=== PATIENT | female | born 1995 | race Hispanic/Latino ===

== ENCOUNTER 2016-11-11 23:30 | Inpatient (IN) | payer OTHER ==
[~2016-11-11] VITALS: Ht 165.1 cm; Wt 94.8 kg
[2016-11-12] MEDS ORDERED: Lactated Ringer's 1,000 ML IV PRN (01:02)
[2016-11-12] MEDS ORDERED: Methylergonovine 0.2 mg/mL Inj IM PRN ×2 (01:05→06:40)
[2016-11-12] MEDS ORDERED: Sodium Chloride LOK Flush 10 mL Syringe IVFLUSH PRN (01:05)
[2016-11-12] MEDS ORDERED: Carboprost 250 mCg/mL Inj IM PRN ×2 (01:05→06:40)
[2016-11-12] MEDS ORDERED: Oxytocin 10 Unit/mL Inj IM PRN ×2 (01:05→06:40)
[2016-11-12] MEDS ORDERED: Oxytocin 30 Units/500 mL LR 30 UNITS in IV Premix 1 EACH IV PRN ×2 (01:05→06:40)
[2016-11-12] MEDS ORDERED: Ondansetron 2 mg/mL 2 mL Inj IVPUSH PRN ×2 (01:05→01:10)
[2016-11-12] MEDS ORDERED: Hemorrhage Kit, Post Partum XX ONE ×2 (01:05→06:40)
[2016-11-12] MEDS ORDERED: Lactated Ringer's 1,000 ML IV SCH (01:10)
[2016-11-12] MEDS ORDERED: Atropine 1 mg/10 mL (Code) Syringe IVPUSH PRN (01:10)
[2016-11-12] MEDS ORDERED: Lactated Ringer's 500 ML IV ONE (01:10)
[2016-11-12] MEDS ORDERED: fentaNYL 2 mCg/mL-Bupiv 0.125% 100 ML EPIDURAL SCH (01:10)
[2016-11-12] MEDS ORDERED: EPHEDrine Sulfate 50 mg/mL Inj IVPUSH PRN (01:10)
[2016-11-12 01:32] LABS: Mean Corpuscular Hemoglobin 25.6 pg (27.0-35.0); Mean Corpuscular Volume 83.4 fL (81-100)
--- NOTE | 2016-11-12 02:17 | PCM.HPANE ---
Patient Data Surgeon Admitting Provider:Chance Hernandez MD Attending Provider:Chance Hernandez MD Primary Care Physician:Chance Hernandez MD Other Provider:Eliazar Anna Anesthesia Reason for Visit TERM Ht/WT & BMI Body Mass Index Past Anesthesia History Anesthesia History: Denies:: Abnormal Airway, Anesthesia Reactions, Difficult Intubation, Fam Anesthesia Reaction, Fam Malignant Hypertherm, Malignant Hyperthermia Diabetes History Hx Diabetes?: No MRSA MRSA: No Medications Hypertension Medication: No Home Meds Incl Beta Yoni: No History History of ENT Problems?: No HEENT History: Denies:: Abnormal Airway Cataracts Difficult Intubation Dysphagia Glaucoma Hearing Problem Sinus Problem TMJ Denture Type: None Teeth Condition: Within Normal Limits Hx of Heart Problems?: No Cardiovascular History: Denies:: AICD Abdominal Aortic Aneurism Atrial Fibrillation Cardiac Surgery Chest Pain Congestive Heart Failure Coronary Artery Disease Edema Heart Murmur Hypertension Irregular Heartbeat Pacemaker Peripheral Vascular Rheumatic Fever Thrombophlebitis Valvular Heart Disease Hx of Respiratory Problem?: No Respiratory History: Denies:: Asthma COPD Chest Surgery Cough Dyspnea Emphysema Hemoptysis Oxygen Administration Pneumonia Pulmonary Embolism Tuberculosis Use of C-PAP Machine Use of Inhalers / NEBS Hx Neurologic Problems?: No Hx of GI Problems?: No Hx of Problems?: No HX of Peritoneal Dialysis: No Female Hx: Positive for:: Currently (uncomplicated) Hx Musculoskeletal Problems?: No Hx Surgeries?: No Stop/Bang TONY Risk Assessment: Low Risk, <3 Yes Risk Assessment Category Category 1A: Patient has history of documented sleep apnea, and HAS NOT received any narcotic, sedative or anesthesia administration during this stay. Category 1B: Patient has history of documented sleep apnea, and HAS received any narcotic , sedative or anesthesia administration during this stay Category 2: Patient has SUSPECTED Obstructive Sleep Apnea, and HAS received any narcotic , sedative or anesthesia administration during this stay. Category 3: Patient has SUSPECTED Obstructive Sleep Apnea and HAS NOT received narcotic, sedative or anesthesia administration during this stay. Category 4: Outpatient in Procedural Areas with known sleep apnea or who screen positive for High Risk via the STOP/BANG questionnaire. Exam Exam General Appearance: Alert, Oriented X3, Cooperative, No Acute Distress HEENT/AIRWAY: MP 2 Lungs: Clear to Auscultation, Normal Air Movement Heart: Exam Unremarkable, Regular Rate/Rhythm, No Murmurs/Rubs/Gallops Plan Impression Patient chart reviewed, patient interviewed and anesthestic plan with risks, benefits, and alternatives discussed, and informed consent obtained. NPO per Anesth. Guidelines: Yes ASA Physical Status: ASA2 Mod Systemic Disease Anesthetic Plan: Epidural Bene/Risks/Altern/Consents: Yes HP Complete Prior to Induction: Yes David Swanson MD Nov 12, 2016 01:12
--- NOTE | 2016-11-12 04:56 | HP ---
[address] [address] HISTORY AND PHYSICAL PATIENT: JUAN CARLOS POTTS : 1995 MR#: [id number] ADMIT: 11/12/2016 JOB ID: [id number] CHIEF COMPLAINT: Increased contractions at term. HISTORY OF PRESENT ILLNESS: A 20-year-old, 3, para 1, who presented late for care to [facility] with Dr. Hernandez and has an estimated due date of October 30, 2016, presented with increased contractions and cervical dilation earlier this morning. I was contacted by nursing about 4 a.m. to come and rupture her as she was having increased urge to push with a very bulgy bag. was complicated by late presentation to care, a history of marijuana use, excess weight, and anemia. Dr. Hernandez had been planned induction for November 13 due to presumptive post-dates. MEDICATIONS: 1. vitamins 1 tablet daily. 2. Ferrous sulfate 325 mg twice daily. ALLERGIES: None known. PAST GYNECOLOGIC HISTORY: 3, para 1. In 2013, she had a miscarriage. In 2014, she delivered a 6 pound 13 ounce female at 39-5/7 weeks by vaginal delivery, reports no complications. LABORATORIES: Glucose tolerance test was 127 with an A1c of 5.3. Blood type O positive. Rubella immune. Hepatitis B surface antigen, HIV test negative. RPR nonreactive. Quad screen was not performed as she was late to care. Her hematocrit was 28.4 at 37 weeks. A GBS swab done October 15, 2016, was negative. Gonorrhea and Chlamydia DNA testing was negative October 15, as was hepatitis C. She is varicella immune as well. PHYSICAL EXAMINATION: Over-nourished young woman becoming progressively more uncomfortable. Please see nursing notes for admitting vitals. Cervical exam shows her to be anterior lip, 100% effaced, -2 station. Very bulgy bag which is ruptured with clear, mucousy fluid in copious amounts. heart tracing shows a baseline in the 130s to 140s. There is one deceleration with recovery seen on the strip I am reviewing. Tocometer shows regular contractions every 2-3 minutes. LABS: Hemoglobin 9.1, Hematocrit 29.7. Urine toxicology screen is positive for marijuana. ASSESSMENT: 1. Gravid at term with uncertain dates, possibly post term. 2. Excess weight. 3. History of marijuana use. 4. Anemia. 5. GBS negative. 6. Late to care. PLAN: The patient is relatively comfortable with an epidural. Anticipate pushing shortly thereafter. The patient and the will be followed by [facility] physicians subsequently. LUIS
[2016-11-12] MEDS: Lactated Ringer's 1,000 ML IV SCH ×3 (06:37→22:37)
[2016-11-12] MEDS ORDERED: Witch Hazel-Glycerin Pads TOPICAL PRN (06:40)
[2016-11-12] MEDS ORDERED: HYDROcodone-APAP 5-325 mg Tablet PO PRN (06:40)
[2016-11-12] MEDS ORDERED: Benzocaine (Dermoplast) 20% 60 Gm Spray TOPICAL PRN (06:40)
[2016-11-12] MEDS ORDERED: LANOlin HPA 7 Gm Ointment TOPICAL PRN (06:40)
--- NOTE | 2016-11-12 07:11 | OP ---
[address] [address] OPERATIVE REPORT PATIENT: JUAN CARLOS POTTS : 1995 MR#: [id number] ADMIT: 11/12/2016 JOB ID: [id number] DELIVERY NOTE DELIVERY POSITION: ROT. APGARS: 5 and 7. DELIVERY WEIGHT: 3838 grams. UMBILICAL CORD: Nuchal cord x1, three vessel cord, otherwise normal appearance. PLACENTA: Central cord insertion, normal appearance, no evidence of retained fragments. ESTIMATED BLOOD LOSS: 250 cc. LACERATIONS: Second degree perineal. COMPLICATIONS: Nuchal cord x1, body was slow to deliver. ANESTHESIA: Epidural and lidocaine for repair. DESCRIPTION OF PROCEDURE: The patient pushed, bringing the head down. Head delivered in right occiput transverse position then rotated as below. Initially shoulders did not deliver easily but as I was contemplating calling a shoulder dystocia the infant rolled towards the maternal left side (infant was rolling face up with left shoulder going under the pubic bone). Nuchal cord was identified and reduced. Body then delivered there afterwards. Infant did not have particularly strong cry and so cord was clamped and infant handed off to nursing for additional stimulation. Cord gas was collected and sent as was cord blood. Perineum was inspected and showed a shallow second degree perineal tear repaired with 2-0 Vicryl after instilling lidocaine. Placenta delivered with spontaneous traction on the cord and after one or two gushes, bleeding slowed rapidly. IV oxytocin is instituted. The patient is in stable condition . Pediatrics was present soon after delivery to evaluate the . I will notify [facility] as this is their regular patient. Sponge and needle counts were correct after delivery. Her rectal exam after repair showed no through and through tears and an intact sphincter tone. MTDD
[2016-11-12] MEDS: Ascorbic Acid 500 mg Tablet PO SCH ×2 (08:00→20:23)
[2016-11-12] MEDS ORDERED: Sodium Chloride LOK Flush 10 mL Syringe IVFLUSH SCH (08:30)
--- NOTE | 2016-11-12 10:28 | NUR ---
Social Work Note D/A/P: Referral received. ON SITE CONSTRUCTION SUPERINTENDENT received referral due to a history of substance use and current Suboxone maintenance. ON SITE CONSTRUCTION SUPERINTENDENT spoke with sales representative trainee Karrie and was informed that Pt would likely not be ready for discharge today. LINDEN and sales representative trainee agreed that ON SITE CONSTRUCTION SUPERINTENDENT would see this Pt today if possible considering the rest of ON SITE CONSTRUCTION SUPERINTENDENT's workflow. If not possible, Pt will be seen first thing in the morning on 11/13/2016. LINDEN Mccormick AAC Addendum: 11/12/16 at 1031 by NEGRA HERNANDEZ Correction. Pt is positive for THC and not on suboxone maintenance. LINDEN Mccormick AAC Addendum: 11/13/16 at 0951 by NEGRA FUNK Correction: Pt is not on suboxone maintenance. Pt admitted recent THC use on 11/11/216 However, no UDS on Pt and NB UDS negative. ON SITE CONSTRUCTION SUPERINTENDENT to see within the hour. Hannah Funk MSW, AAC
--- NOTE | 2016-11-12 15:03 | PCM.ANEP1 ---
Post Anesthesia PACU Phase 1 Assessment Anesthetic Administered: Epidural Level of Alertness: Awake, talking CEDEÑO's with Equal Strength: Yes Pain: No Nausea or Vomiting: No CV Function & Hydration Stable: Yes Airway Device: Oxygen Delivery: Room Air Lungs: Normal Air Movement PACU Phase 2 Assessment Complications: No Follow up Care: No Patient Instructions Provided: N/A Fox Wheatley MD Nov 12, 2016 15:03
[2016-11-13] MEDS: Lactated Ringer's 1,000 ML IV SCH (06:37)
[2016-11-13 06:56] LABS: Mean Corpuscular Volume 84.6 fL (81-100)
--- NOTE | 2016-11-13 08:11 | PCM.DIOB ---
Obstetrical Disch Instruction Date of Service: Nov 13, 2016 Dates of Hospitalization Date of Hospital Admission Nov 12, 2016 at 01:04 Providers Admitting Physician: Chance Hernandez MD Primary Care Physician: Chance Hernandez MD Attending Physician: Chance Hernandez MD Discharge Diagnosis Problems: (1) Encounter for vaginal delivery Status: Acute ICD Code: O80 (2) Anemia Status: Acute ICD Code: D64.9 Diet Discharge Diet: No restrictions Activity Discharge Activity-General: Pelvic Rest for 6 weeks, Activity as pain allows, Activity as energy allows Dressing and Incisional Care Hygiene: May shower, Perineal care, Sitz bath, Dermoplast spray, Witch Lauryn pads, Ice Additional Instructions Discharge Instructions medications PNVs, DSS, ibuprofen all faxed to patient's outpatient pharmacy by Dr. Hernandez Follow Up Plan Follow-up Provider (F9): Chance Hernandez MD Follow-up appointment: Weeks (6) Chance Hernandez MD Nov 13, 2016 08:11
[2016-11-13] MEDS: Ascorbic Acid 500 mg Tablet PO SCH (08:29)
[2016-11-13 10:29] VITALS: BP 120/73; PULSE 79; RESP 18
--- NOTE | 2016-11-13 11:35 | NUR ---
Social Work Note D/A: BECK TENDER met with Pt at bedside to complete an initial assessment. Pt reported that she currently resides in a transitional housing program with [facility] in [place]. Pt indicated that she lives with FOB and their previous child, an 18 month female named Renetta. Pt explained that she intends to return to this home upon discharge. Pt reported that she has everything that she needs to successfully care for BG at home including a crib and a car seat. Pt indicated that she is not currently enrolled in WIC, food stamps or TANF and explained that she was planning to apply for all of these once she is discharged. Pt reported that she has a strong network of social supports in the form of family and friends as well as through [facility]. Pt was late to care. Pt explained that she and her family were living in a motel and did not have health insurance or transportation until September of 2016. 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 Pt denied any history of DV and reported no current legal concerns. Pt reported that she has a history of anxiety but has not needed medications to manage that for a few years. Pt indicated that she used THC occasionally throughout the for nausea. Pt explained that she last used THC on 11/11/2016. [facility] staff was unable to complete a UDS on Pt prior to delivery but were able to complete a UDS on BG which was negative. Pt reported no additional needs prior to discharge. P: BECK TENDER informed Pt that the late care and the THC use would prompt a call to CPS. Pt indicated that she understood. catering staff member reported that Pt and family have been appropriate and affectionate with BG while in the hospital. catering staff member reported no additional concerns. BECK TENDER called CPS and provided the above information to Minerva Lobato who explained that it would not be likely that this would screen in for further investigation. BECK TENDER relayed this to [facility] emissions technician. Pt to be discharged once medically cleared by C . LINDEN Mccormick, AAC
--- NOTE | 2016-11-13 21:25 | DIS ---
[address] [address] DISCHARGE SUMMARY PATIENT: JUAN CARLOS POTTS : 1995 MR#: [id number] ADMIT: 11/12/2016 JOB ID: [id number] DIS: 11/13/2016 ADMIT DIAGNOSES: 1. Multip, term, active labor. 2. Anemia. 3. History of marijuana use. DISCHARGE DIAGNOSES: 1. 3, now para 2, status post normal spontaneous vaginal delivery without complication. 2. Anemia, . HOSPITAL COURSE: For details of admission, please see H and P and delivery note by Dr. Shakeel Pelletier. Briefly, the patient came into the hospital in active labor, delivered rapidly, with AROM performed, good progression delivery. Epidural for anesthesia. No delivery-related complications. Of note, the patient did admit to marijuana use within a couple of days of delivery. For that reason, Furniture Sander was involved, and CPS referral was generated. Infant tox screen was negative. course was normal, with ambulation, normal bowel and bladder function , normal lochia. . DISCHARGE EXAMINATION: Patient is afebrile. Vital signs stable. She is in no acute distress. Pleasant, cooperative. She is without problems. Cardiovascular: Rhythm S1-S2 heard, no murmurs, gallops, rubs. Lungs are clear to auscultation bilaterally. No crackles, rhonchi or wheezes. Uterus is firm, just to the right of midline at two fingerbreadths above umbilicus. Lower extremities are without edema. hematocrit is 26.3 (decreased from 29.7 before delivery). Platelets 210. White count 12.4. DISCHARGE INSTRUCTIONS: The patient is discharged home (she has stable transitional housing), with . Ibuprofen, vitamins, ferrous gluconate (of note, ferrous sulfate caused the patient to vomit), and DSS are all faxed to the patient's outpatient pharmacy. Usual potential complications of the peripartum period are described to the patient, and management of those as well as how to access cares reviewed. Follow up in six weeks for exam, sooner p.r.n. MTDD
== END 2016-11-13 13:30 | disposition home or self-care (01) | DRG 775 ==
LOC: FBCO 23:30 → FBC 11-12 01:04
PROVIDERS: ADMIT Family Medicine; ATTEND Family Medicine
PROC: 10E0XZZ Delivery of Products of Conception, External Approach (ICD-10-PCS; principal; 2016-11-12)
PROC: 0KQM0ZZ Repair Perineum Muscle, Open Approach (ICD-10-PCS; 2016-11-12)
PROC: 10907ZC Drainage of Amniotic Fluid, Therapeutic from Products of Conception, Via Natural or Artificial Opening (ICD-10-PCS; 2016-11-12)
DX: O99.324 Drug use complicating childbirth (principal); D64.9 Anemia, unspecified; O70.1 Second degree perineal laceration during delivery; F12.90 Cannabis use, unspecified, uncomplicated; O99.02 Anemia complicating childbirth; O69.81X0 Labor and delivery complicated by cord around neck, without compression, not applicable or unspecified; Z3A.41 41 weeks gestation of pregnancy; Z37.0 Single live birth